=== PATIENT | male | born 1975 | race African-American/Black ===

== ENCOUNTER 2022-07-30 00:19 | Day surgery (SDC) | payer BC, SELFPAY ==
[2022-07-14 13:34] VITALS: BMI 25.2
--- NOTE | 2022-07-29 16:11 | PM.HPGS ---
History of Present Illness History of Present Illness Consent: Risks, benefits, and alternatives have been discussed and questions answered. Patient agrees to proceed with procedure. Chief complaint: neoplasm screening Narrative: Erich Gonzales is a 47 year old male referred for colon cancer screening. Review of Systems Review of Systems: All systems reviewed & are unremarkable except as noted in HPI and below [facility] Social History Social History Smoking status: Never smoker Alcohol intake: current Alcohol use details: about one drink/month Substance use: never Substance use type: does not use Living arrangements: with family Spiritual care concerns: No Meds Home Medications and Allergies Home Medications Medication Instructions Recorded Confirmed Type No Home Medications 07/14/22 07/14/22 History Allergies Allergy/AdvReac Type Severity Reaction Status Date / Time No Known Allergies Allergy Verified 07/30/22 06:49 Exam Resp: Auscultation: clear to auscultation bilaterally Cardio: Rate: regular rate Rhythm: regular rhythm GI: GI Palp: Yes Soft to palpation and No Tenderness to palpation present (GI) Assessment and Plan Assessment and plan (1) Colon cancer screening: Code(s): Z12.11 - Encounter for screening for malignant neoplasm of colon Status: Acute Assessment and Plan: Colonoscopy with possible biopsy or polypectomy or cautery or injection of substances.
[2022-07-30 06:51] VITALS: BP 118/71; PULSE 98; RESP 20; TEMP 36.2; O2SAT 98
[2022-07-30] MEDS: LACTATED RINGERS 1,000 ML 150 ML IV CONT (07:04)
[2022-07-30] MEDS: SIMETHICONE ORAL SUSPENSION 20 MG/0.3 ML 30 ML BOTTLE 0.6 ML IRRIGATION (08:04)
[2022-07-30 08:11] VITALS: BP 104/69; PULSE 79; RESP 14; O2SAT 99
[2022-07-30 08:21] VITALS: BP 114/75; PULSE 77; RESP 22; O2SAT 100
[2022-07-30 08:31] VITALS: BP 123/84; PULSE 73; RESP 22; O2SAT 100
== END 2022-07-30 08:42 | disposition home or self-care (01) ==
PROVIDERS: PCP Internal Medicine; Visit Provider Internal Medicine Gastroenterology
PROC: 0DJD8ZZ Inspection of Lower Intestinal Tract, Via Natural or Artificial Opening Endoscopic (ICD-10-PCS; CPT 45378; principal; 2022-07-30 08:00)
DX: Z12.11 Encounter for screening for malignant neoplasm of colon (principal); K64.8 Other hemorrhoids; K57.30 Diverticulosis of large intestine without perforation or abscess without bleeding
CPT/HCPCS: 45378; J2704; J7120